=== PATIENT | female | born 1965 | race Caucasian/White ===

== ENCOUNTER 2017-09-08 22:10 | Emergency (ER) | payer MEDICARE, MEDICAID ==
[2015-09-10 08:23] VITALS: BMI 18.7
[~2017-09-08 22:10] MED LIST: CARAFATE1 G/10 ML PO; CELLCEPT250 MG PO; CYCLOBENZAPRINE5 MG PO; DILAUDID2 MG PO; DURAGESIC1 PATCH .1 TRANSDERM; GABAPENTIN100 MG PO; HUMALOG 30100 UNITS/; HYDROCODONE-APA1 TAB PO; LIDOCAINE 2 %100 ML PO; NEORAL25 MG PO; NYSTATIN ORAL SU5 ML PO; VITAMIN B-121000 MCG PO; VITAMIN B-122500 MCG
[2017-09-08 23:13] LABS: BASOPHILS 0.2 % (0-2); EOSINOPHILS 0.2 % (0-7); HEMATOCRIT 41.2 % (36.0-48.0); HEMOGLOBIN 14.4 g/dL (12-16); IMMATURE GRANULOCYTES 0.3 % (0-5); LYMPHOCYTES 18.4 % (15-50); MCH 31.1 pg (26.0-34.0); MEAN PLATELET VOLUME 9.2 fL (7.4-10.4); MONOCYTES 6.5 % (2-11); NEUTROPHILS 74.4 % (40-80); PLATELET COUNT 185 10x3/uL (130-400); RBC 4.63 10x6/uL (4.00-5.40); RDW 13.3 % (11.5-14.5); WBC 6.4 10x3/uL (4.8-10.8)
[2017-09-08 23:29] LABS: ALBUMIN 3.6 g/dL (3.4-5.0); ALKALINE PHOSPHATASE 116 U/L (46-116); ALT (SGPT) 17 U/L (10-68); BILIRUBIN - TOTAL 0.42 mg/dL (0.2-1.3); CALC OSMOLALITY 270 mosm/kg (275-300); CALCIUM 9.3 mg/dL (8.5-10.1); CARBON DIOXIDE 27.5 mmol/L (21.0-32.0); CHLORIDE - SERUM 98 mmol/L (98-107); CREATININE - SERUM 0.6 mg/dL (0.6-1.3); POTASSIUM - SERUM 3.6 mmol/L (3.5-5.1); SODIUM 136 mmol/L (136-145); UREA NITROGEN 13 mg/dL (7-18); eGFR NON AFRICAN AMERICAN > 90 mL/min (90-120)
[2017-09-08 23:33] LABS: GLUCOSE 84 mg/dL (74-106)
[2017-09-08 23:38] LABS: CREATINE KINASE 44 UL (21-215); PRO BNP 625 pg/mL (0-125)
[2017-09-08 23:39] LABS: TROPONIN-I < 0.017 ng/mL (0.000-0.060)
== END 2017-09-09 03:50 | disposition home or self-care (01) ==
LOC: D.ER 22:10
PROVIDERS: Family Medicine
DX: J20.9 Acute bronchitis, unspecified (principal); R09.1 Pleurisy; I31.3 Pericardial effusion (noninflammatory); R00.0 Tachycardia, unspecified; F17.200 Nicotine dependence, unspecified, uncomplicated

== ENCOUNTER 2017-10-11 11:30 | Outpatient (CLI) | payer MEDICARE, MEDICAID ==
[~2017-10-11] VITALS: Ht 154.9 cm; Wt 48.6 kg
--- NOTE | ~2017-10-11 | OP ---
PATIENT NAME: SUSU NICOLE MEDICAL RECORD: [id number] :67 LOCATION:D.CAT ADMISSION DATE: SURGEON: NEW FUENTES MD DATE OF OPERATION: 10/11/2017 PROCEDURE: Left heart catheterization, selective coronary angiography, left femoral artery approach. CATHETERS: A 5-Welsh sheath, 5/4 left Crystal, 5/4 pig. The procedure was well tolerated. She returned to the deleon, sheath removed, adequate hemostasis was obtained. LEFT VENTRICULOGRAPHY: In 30 degrees ALBRIGHT view, global hypokinesis. Overall, LV function 25% to 30%. CORONARY ANATOMY: Left main: Left main is free of disease. LAD: LAD has a diffuse 80% to 90% stenosis in mid portion with good target distally. There is large high ramus/D1 branch with about 80% stenosis before the bifurcation. RIGHT CORONARY ARTERY: Proximal, mid portion, has about 80% stenosis. 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 TRANSINT:[id number] Voice Confirmation ID: [id number] DOCUMENT ID: [id number] NEW FUENTES MD at 1325 CC: [id number] DICTATION DATE: 10/11/17 1439 SUPERVISOR RECORDS CHANGE: 10/11/17 1626 DEP CLI 10/11/[address] [address]
--- NOTE | ~2017-10-11 | HEMODYNAMI ---
PATIENT:SUSU NICOLE MEDICAL RECORD: [id number] : 67 LOCATION:[facility] ADMISSION DATE: 10/11/17 Generatedon:10/11/201714:37 Patient name: SUSU NICOLE Patient #: [id number] SSN: : 1965 Date of study: 10/11/2017 Page: Of Hemodynamic Procedure Report Patient Data Patient Demographics Procedure consent was obtained First Name: SUSU Gender: Female Last Name: BONNIE : 1965 Middle Initial: Age: 52 year(s) Patient #: [id number] Race: Unknown Additional ID: [id number] Contact details Address: [address] [place] [address] [place] State: [place] City: [facility] Zip code: [address] Admission Admission Data Admission Date: 10/11/2017 Admission Time: 11:30 Procedure Procedure Types Cath Procedure Diagnostic Procedure LHC LHC w/Coronaries Procedure Description Procedure Date Procedure Date: 10/11/2017 Procedure Start Time: 14:16 Procedure End Time: 14:36 Procedure Staff Name Function Francis Schulte MD Performing Physician Tushar Nino RT Monitor Leon Manley RN Nurse Coretta Bland RT Scrub Feranndo Adrian Jr, CRNA Additional personnel Procedure Data Cath Procedure Fluoroscopy Diagnostic fluoroscopy Total fluoroscopy Time: 2.5 time: 2.5 min min Diagnostic fluoroscopy Total fluoroscopy dose: 251 dose: 251 mGy mGy Contrast Material Contrast Material Type Amount (ml) Isovue 300 60 Entry Location Entry Primary Successful Side Size Upsize Upsize Entry Closure Succes sful Closure Location (Fr) 1 (Fr) 2 (Fr) Remarks Device Remarks Femoral Left 5 Fr Exoseal artery Estimated blood loss: 10 ml Diagnostic catheters Device Type Used For End Catheter Placement MULTIPACK 3DRC 5Fr Procedure catheter MULTIPACK JL 4.0 5Fr Procedure catheter MULTIPACK Pigtail 5 Fr Procedure catheter Procedure Complications No complications Procedure Medications Medication Administration Route Dosage Oxygen etCO2 Nasal cannula 2 l/min Heparin Flush Bag added to field 2 bags (1000units/500ml NS) 0.9% NaCl I.V. 100 ml/hr Refer to Anesthesia Notes for Sedation Medications Hemodynamics Rest Heart Rate: 80 (bpm) Pressure Samples Time Site Value (mmHg) Purpose Heart Use Rate(bpm) 14:22 AO 71/46(56) Snapshot 69 14:26 LV 86/-1,8 Snapshot 72 Gradients Valve Time Site Site Mean SEP/DFP Peak To Heart Use 1 2 (mmHg) (sec/min) Peak Rate (mmHg) (bpm) Aortic 14:26 LV AO 72 Snapshots Pre Cath Intra NCS Post Cath Vital Signs Time Heart Resp SPO2 etCO2 NIBP Rhythm Pain Sedation Rate (ipm) (%) (mmHg) (mmHg) Status Level (bpm) 13:37:34 80 16 96 0 97/42(58) NSR 0 (11) 10(A) , No pain 13:42:05 78 16 100 32.4 96/56(78) NSR 0 (11) 10(A) , No pain 13:46:35 76 16 100 34.6 88/48(75) NSR 0 (11) 10(A) , No pain 13:51:05 75 17 100 34.6 80/33(69) NSR 0 (11) 10(A) , No pain 13:55:34 74 17 100 33.9 77/37(57) NSR 0 (11) 10(A) , No pain 14:00:02 73 17 100 33.1 73/40(58) NSR 0 (11) 10(A) , No pain 14:04:31 71 16 100 33.1 70/35(59) NSR 0 (11) 10(A) , No pain 14:08:59 71 16 100 33.9 76/37(62) NSR 0 (11) 10(A) , No pain 14:13:27 72 16 100 33.1 80/34(56) NSR 0 (11) 10(A) , No pain 14:17:55 73 17 100 32.3 78/40(64) NSR 0 (11) 10(A) , No pain 14:22:24 73 15 100 32.3 76/37(61) NSR 0 (11) 10(A) , No pain 14:26:52 71 17 100 33.1 81/42(65) NSR 0 (11) 10(A) , No pain 14:31:02 70 11 100 32.4 77/36(64) NSR 0 (11) 10(A) , No pain 14:35:30 71 12 100 31.6 77/42(64) NSR 0 (11) 10(A) , No pain Medications Time Medication Route Dose Verified Delivered Reason Notes Effe ctiveness by by 13:32:07 Oxygen etCO2 2 Francis Quintero Per Nasal l/min St Jak Manley RN physician cannula MD 13:32:16 Heparin Flush added 2 Francis Quintero used for Bag to bags St Jak Manley RN procedure (1000units/500ml field NS) 13:32:25 0.9% NaCl I.V. 100 Francis Leon Per ml/hr St Jak Manley RN physician MD 13:32:31 Refer to Francis Quintero Per Anesthesia Notes St Jak Manley RN physician for Sedation Medications Procedure Log Time Note 13:00:55 Leon Manley RN sent for patient. Start room use. 13:18:56 Time tracking: Regular hours (M-F 7:00 - 5:00) 13:19:00 Plan of Care:Hemodynamics will remain stable., Cardiac rhythm will remain stable., Comfort level will be maintained., Respiratory function will remain adequate., Patient/ family verbilizes understanding of procedure., Procedure tolerated without complication., Recovers from procedure without complications.. 13:23:44 Patient received from Pre/Post Procedure Room to CCL 1 Alert and oriented. Tansferred to table in Supine position. 13:23:44 Warm blankets applied, and delonte hugger turned on for patient comfort. 13:23:45 Correct patient and procedure confirmed by team. 13:23:46 Signed procedure consent form obtained from patient. 13:23:47 ECG and BP/O2 sat monitors applied to patient. 13:23:48 Full Disclosure recording started 13:29:28 Fernando Adrian Jr, CRNA present and monitoring patient for TIVA. 13:29:30 Vital chart was started 13:32:07 Oxygen 2 l/min etCO2 Nasal cannula was administered by Leon Manley RN; Per physician; 13:32:16 Heparin Flush Bag (1000units/500ml NS) 2 bags added to field was administered by Leon Manley RN; used for procedure; 13:32:25 0.9% NaCl 100 ml/hr I.V. was administered by Leon Manley RN; Per physician; 13:32:31 Refer to Anesthesia Notes for Sedation Medications was administered by Leon Manley RN; Per physician; 13:32:53 Vital chart was stopped 13:32:55 Vital chart was started 13:36:46 Baseline sample Acquired. 13:36:51 Rhythm: sinus rhythm 13:41:04 H&P Date Dictated: 09/09/2017 Within 30 days and on chart., H&P Addendum completed by physician on day of procedure. (MUST COMPLETE FOR ALL OUTPATIENTS). 13:41:04 Pre-procedure instructions explained to patient. 13:41:05 Pre-op teaching completed and patient verbalized understanding. 13:41:12 Family in waiting room. 13:41:13 Patient NPO since Midnight. 13:41:14 Is the patient allergic to Iodine/contrast media? No. 13:41:16 Is patient on blood thinner?No 13:41:18 Patient diabetic? Yes. 13:41:19 IDDM 13:47:52 Previous problem with sedation/anesthesia? No ? 13:47:56 Snore? Yes 13:47:58 Sleep apnea? No 13:47:59 Deviated septum? No 13:48:00 Opens mouth fully? Yes 13:48:01 Sticks out tongue? Yes 13:48:11 Airway obstruction? Yes Lung CA 13:48:21 Dentures? Yes IN 13:48:25 Pre procedure: left dorsailis pedis pulse 1+ Palpable, but thready & weak; easily obliterated 13:49:16 Unable to go right groin due to past surgical procedures to right lower abdomen. 13:49:20 Patient pain scale 0/10 ?. 13:49:27 IV patent on arrival in left forearm with 0.9% NaCl at [facility]. 13:49:30 Lab results completed and on chart. 13:49:32 Alarms reviewed by R. N. 13:49:32 Sharps counted by scrub and verified by R.N. 13:55:50 Case delayed due to physician working in 3. 14:11:27 --------ALL STOP TIME OUT------ 14:11:28 Final Timeout: patient, procedure, and site verified with staff and physician. All members of the team are in agreement. 14:11:31 Left groin site verified by team. 14:11:36 Physical assessment completed. ASA score P 4 - A patient with severe systemic disease that is a constant threat to life as per Francis Schulte MD. 14:11:46 Sedation plan: TIVA Medication:Propofol 14:14:45 Use device set Femoral Dx 14:14:47 Tegaderm 4 x 4 (1626W) opened to sterile field. 14:14:47 ACIST Manifold (08820) opened to sterile field. 14:14:48 ACIST Hand Control (76373) opened to sterile field. 14:14:50 ACIST Syringe (63275) opened to sterile field. 14:14:50 Bag Decanter (2002S) opened to sterile field. 14:14:51 Medline Cath Pack ([id number]) opened to sterile field. 14:14:54 PERCUTANEOUS ENTRY 19GA needle opened to sterile field. 14:15:12 SHEATH Prelude 5Fr 0.035 (ZSP-9V-14-035) opened to sterile field. 14:15:22 DIAGNOSTIC Multipack 5Fr catheter set (OF9686) opened to sterile field. 14:15:25 DIAGNOSTIC WIRE .035 260cm J wire (792693) opened to sterile field. 14:16:23 Procedure started. 14:16:27 Local anesthetic to left femerol artery with Lidocaine 2% by Francis Schulte MD.INITIAL ACCESS ONLY 14:17:34 A 5 Fr sheath was inserted into the Left Femoral artery 14:18:40 GLIDE WIRE ANGLE 260cm (VK3182) opened to sterile field. 14:18:41 TORQUE DEVICE PLASTIC .038 ( TD01) opened to sterile field. 14:19:23 Unable to advance j wire. Wire removed. Glidewire advanced. 14:20:21 A MULTIPACK 3DRC 5Fr catheter was advanced over the wire and used for Procedure. 14:21:14 RCA angiography performed. 14:21:45 Catheter removed. 14:21:50 A MULTIPACK JL 4.0 5Fr catheter was advanced over the wire and used for Procedure. 14:22:38 LCA angiography performed. 14:24:19 Catheter removed. 14:24:36 A MULTIPACK Pigtail 5 Fr catheter was advanced over the wire and used for Procedure. 14:26:25 LV angiography performed. 14:26:34 LV gram done using ALBRIGHT 14::44 EF : 30 % 14::46 LV hemodynamics recorded. 14::50 Injector settings: Ml/sec: 10, Volume: 20, 14:: EXOSEAL 5Fr (EX500) opened to sterile field. 14:27:30 Catheter removed. 14:28:48 Sheath removed intact; hemostasis achieved with Exoseal to the Left Femoral artery. 14:28:50 Procedure ended.(Physican Out) 14:: Fluoroscopy time 02.50 minutes. 14:: Fluoroscopy dose: 251 mGy 14:: Flurop Dose total: 251 14:: Contrast amount:Isovue 300 60ml. 14:: Sharps counted by scrub and verified by R.N. 14:29:28 Insertion/operative site no bleeding no hematoma. 14:29:34 Post-op/insertion site Left Femoral artery dressed using a 4 x 4 and Tegaderm. 14:29:35 Post Procedure Pulses reassessed and unchanged 14:29:37 Post-procedure physical assessment completed. ASA score P 4 - A patient with severe systemic disease that is a constant threat to life as per Francis Schulte MD. 14:29:40 Post procedure rhythm: unchanged. 14:30:08 Estimated blood loss: 10 ml 14:30:11 Post procedure instruction explained to patient.Patient verbalizes understanding. 14:30:11 Patient needs reinforcement of post procedure teaching. 14:30:52 Procedure and supply charges have been captured, reviewed, submitted and are correct. 14:30:55 Procedure Complication : No complications 14:31:18 See physician's report for complete and final results. 14:31:23 Report given to Pre/Post Procedure Room. 14:31:27 Patient transfered to Pre/Post Procedure Room with Stretcher. 14:36:44 Procedure ended. 14:36:44 Full Disclosure recording stopped 14:36:48 End room use (Document Last) 14:37:03 Vital chart was stopped Device Usage Item Name Manufacture Quantity Catalog Number Hospital Part Current M inimal Lot# / Charge Number Stock Stock Serial# Code Tegaderm 4 x 4 3M 1 1626W [id number] 882848 078880 5 (1626W) ACIST Manifold Acist 1 16988 126908 840562 044409 5 (49191) [employer] Inc ACIST Hand Acist 1 58655 649355 356775 425774 5 Control (68495) [employer] ACIST Syringe Acist 1 75289 633852 961944 006072 2 0 (15473) [employer] Systems Inc Bag Decanter Microtek 1 2001S 867709 36761 859147 5 (2001S) Medical Inc. Medline Cath Cardinal 1 [id number] 476395 19954 202503 5 Pack Health ([id number]) PERCUTANEOUS Cook Medical 1 C44826 410643 771467 5 ENTRY 19GA needle SHEATH Prelude Merit 1 PXU-2W-41-035 173494 092221 342376 5 5Fr 0.035 Medical (RPB-6S-47-035) DIAGNOSTIC Cardinal 1 XJ5563 750255 70347 701665 3 0 Multipack 5Fr Health catheter set (VL0415) DIAGNOSTIC WIRE [facility] [place] 1 189629 913640 694874 538532 3 0 .035 260cm J wire (306545) GLIDE WIRE Terumo 1 RA7284 887136 763636 465059 5 ANGLE 260cm (ND1347) TORQUE DEVICE Marshall 1 TD01 363691 628735 244392 5 PLASTIC .038 ( Scientific TD01) MULTIPACK 3DRC Cardinal 1 350300 5 5Fr catheter Health MULTIPACK JL Cardinal 1 949701 5 4.0 5Fr Health catheter MULTIPACK Cardinal 1 958272 5 Pigtail 5 Fr Health catheter EXOSEAL 5Fr Cardinal 1 EX500 425874 423169 899960 1 0 (EX500) Health Signature Audit [place] Stage Time Signature Unsigned Intra-Procedure 10/11/2017 Tushar Nino 2:37:01 PM RT(R) Signatures Monitor : Tushar Nino RT Signature : Date : Time : [facility] [address] [place] [address]
[2017-10-11] MEDS ORDERED: XANAX0.5 MG PO (12:23)
[2017-10-11 12:34] VITALS: BP 138/85; Ht 154.9 cm; Wt 48.6 kg
[2017-10-11 12:35] LABS: BASOPHILS 0.2 % (0-2); EOSINOPHILS 0.9 % (0-7); HEMOGLOBIN 14.6 g/dL (12-16); LYMPHOCYTES 29.2 % (15-50); MCH 30.9 pg (26.0-34.0); MCV 90.9 fL (80.0-100.0); MEAN PLATELET VOLUME 9.1 fL (7.4-10.4); MONOCYTES 7.2 % (2-11); NEUTROPHILS 62.5 % (40-80); PLATELET COUNT 192 10x3/uL (130-400); RBC 4.73 10x6/uL (4.00-5.40); WBC 4.5 10x3/uL (4.8-10.8)
[2017-10-11 12:52] LABS: CALC OSMOLALITY 281 mosm/kg (275-300); CALCIUM 9.2 mg/dL (8.5-10.1); CARBON DIOXIDE 29.8 mmol/L (21.0-32.0); CHLORIDE - SERUM 102 mmol/L (98-107); CREATININE - SERUM 0.6 mg/dL (0.6-1.3); GLUCOSE 127 mg/dL (74-106); POTASSIUM - SERUM 3.5 mmol/L (3.5-5.1); SODIUM 140 mmol/L (136-145); UREA NITROGEN 16 mg/dL (7-18); eGFR NON AFRICAN AMERICAN > 90 mL/min (90-120)
== END 2017-10-11 16:55 | disposition home or self-care (01) ==
LOC: D.CATH 11:30
PROVIDERS: Internal Medicine Interventional Cardiology
DX: I25.119 Atherosclerotic heart disease of native coronary artery with unspecified angina pectoris (principal); R94.30 Abnormal result of cardiovascular function study, unspecified; F17.200 Nicotine dependence, unspecified, uncomplicated; E11.9 Type 2 diabetes mellitus without complications; Z94.0 Kidney transplant status; Z01.812 Encounter for preprocedural laboratory examination

== ENCOUNTER 2017-11-02 14:00 | Inpatient (IN) | payer MEDICARE, MEDICAID ==
[~2017-11-02] VITALS: Ht 154.9 cm; Wt 60.6 kg
--- NOTE | ~2017-11-02 | OP ---
PATIENT NAME: SUSU NICOLE MEDICAL RECORD: [id number] :67 LOCATION:[facility] ADMISSION DATE:11/04/17 SURGEON: ESTEBAN ANN MD DATE OF OPERATION: 11/04/2017 SURGEON: Esteban Ann MD ASSISTANTS: 1. Sonu Palmer MD 2. COLLIN Feliz OPERATION PERFORMED: Coronary bypass graft times 4 (left internal mammary artery to first diagonal and reverse saphenous vein grafts from aorta to LAD, aorta to obtuse marginal, and aorta to posterior descending artery). PREOPERATIVE DIAGNOSES: Coronary disease, end-stage renal disease with kidney transplant, and history of lung cancer. POSTOPERATIVE DIAGNOSES: Coronary disease, end-stage renal disease with kidney transplant, and history of lung cancer. ANESTHESIA: General endotracheal anesthesia. ESTIMATED BLOOD LOSS: Total cardiopulmonary bypass with Cell Saver retransfusion, 2 units of packed red blood cells, transfused 1 unit of platelets. COMPLICATIONS: None. SPECIMENS: None. CONDITION: Stable. DISPOSITION: CV ICU. OPERATIVE FINDINGS: 1. Good quality greater saphenous vein from the mid calf upward. The lower leg portion was smaller and thin walled and was only used as the proximal portion of the graft to the obtuse marginal. There was concern for using the left internal mammary artery for major graft due to the history of bilateral supraclavicular radiation. On taking down the internal mammary artery, the tissues in the region of the subclavian vein had significant changes consistent with radiation change. Therefore, the pedicle graft was used as a graft to the diagonal vessel due to concern from previous radiation damage, but without other vein available for use for this graft. 2. LAD 2.0 mm with severe disease. 3. First diagonal 1.5 mm with severe disease. 4. Obtuse marginal intramyocardial 2.0 mm vessel with severe proximal disease. 5. The right coronary artery was calcified throughout down past the bifurcation. The posterolateral branch was slightly smaller than the posterior descending artery, unlike what it had appeared on the arteriogram. The graft was therefore placed on the posterior descending artery. 6. Transesophageal echocardiography revealed trace mitral regurgitation. Significantly improved contractility from the time of the cath to about 45% EF with significant left ventricular hypertrophy and moderately dilated diastolic OPERATIVE REPORT [id number] SUSU NICOLE dimensions of the left ventricle. OPERATIVE INDICATION: Unstable angina and multivessel coronary disease with diminished left ventricular function. OPERATIVE SUMMARY IN DETAIL: The patient was brought to the operating suite. General anesthesia was obtained. The patient was prepped and draped. During placement of the lines, initially attempts were made to place right IJ. Eventually, a right subclavian line was able to be placed as a left subclavian was cannulated but the catheter would not cross the midline. The exposure of the chest did reveal some scarring in the midline, consistent with previous radiation. Greater saphenous vein was harvested in the leg using open incisions. Vessel removed. Side branches clipped or tied and made hemostatic with Prolene. Leg was later closed with subcutaneous and skin clips. Sternotomy incision was made. Subcutaneous tissue was divided with electrocautery. Left hemisternum was elevated. Left pleural cavity was entered. Left internal mammary vein was taken as a pedicle graft. Sternal retractor was placed. Pericardium was opened. The heparin was given. The patient was cannulated. Internal mammary was clipped distally. The patient was placed on cardiopulmonary bypass. Sites for distal anastomoses were selected. Antegrade cardioplegic cannula was inserted. The patient was cooled. Crossclamp was placed. Cardioplegia was given. This was repeated at 15-minute intervals including down the completed vein grafts. Distal anastomosis was performed in standard technique and proximal anastomosis in single crossclamp technique. The aortic root was deaired and flow was restored. After de-airing the grafts, proximal and distal anastomotic site was inspected for bleeding. The patient resumed spontaneous rhythm after a single defibrillation. After fully rewarmed, weaned cardiopulmonary bypass and was stable. The patient was decannulated. Cannulation site on the aorta was oversewn with a pledgeted Prolene. Thorough irrigation was undertaken. The patient was stable. The grafts lay appropriately. Drains were placed in mediastinum and left pleural cavity. Left chest was evacuated and irrigated. Ventricular pacing wires were placed. Pericardial fat was loosely reapproximated. The sternum was closed with a Robicsek weave sternal wire on both sides due to her previous radiation and history of smoking. Fascia was closed. Subcutaneous tissue was closed. Skin was closed. Dermabond was placed. Needle and sponge counts were reported as correct. The patient was taken to the ICU in stable condition. TRANSINT:[id number] Voice Confirmation ID: [id number] DOCUMENT ID: [id number] ESTEBAN ANN MD at 1328 CC: ISABELL MELGAR MD and NEW FUENTES MD [id number] DICTATION DATE: 11/04/17 1431 HOSPICE CLINICAL MANAGER: 11/04/17 1634 DIS IN 11/10/17 [facility] [address] [place] [id number]
--- NOTE | ~2017-11-02 | EC ---
PATIENT:SUSU NICOLE DATE OF SERVICE: 11/04/17 SEX: F MEDICAL RECORD: [id number] DATE OF : 67 LOCATION:[facility] AGE OF PATIENT: 52 ADMISSION DATE: 11/04/17 REFERRING PHYSICIAN: INTERPRETING PHYSICIAN: YESICA FLOYD MD ECHOCARDIOGRAM REPORT ECHO CHARGES Date: 11/04 CLINICAL DIAGNOSIS: ECHOCARDIOGRAPHIC MEASUREMENTS (adult normal given) AC root (d.<3.7cm) cm LV Septum d (<1.2 cm> cm Valve Excursion cm LV Septum (systole) cm Left Atria (s.<4.0cm> cm LVPW d(<1.2cm) cm RV (d.<2.3cm) cm LVPW (sytole) cm LV diastole(<5.6CM) cm MV E-F(>70mm/sec) cm LV systole cm LVOT Diameter cm MV exc.(>10mm) cm Est.ejection fraction (50-75%) % DOPPLER: LVIT cm/sec A cm/sec E cm/sec LA cm/sec RVSP mmHg LVOT cm/sec AOP1/2T m/s Asc. Ao cm/sec RVOT cm/sec RA cm/sec PA cm/sec AV Gradient Peak mmHg AV Mean mmHg AV Area cm MV Gradient Peak mmHg MV Mean mmHg MV Area cm COMMENTS: Dredge Worker: Sridevi TORRE Transport Medic: 3 Dr. Bhatti TAPE# PACS Pericardial Effusion DATE OF SERVICE: 11/04/2017 PROCEDURE: Transesophageal echo evaluation of valvular structures during bypass surgery. FINDINGS: 1. Left ventricular chamber size is mildly dilated. Left ventricular systolic function is moderately reduced, overall ejection fraction 30% to 35%. 2. Left atrium, right atrium, and right ventricle chamber sizes are as well mildly dilated. ECHOCARDIOGRAM REPORT [id number] SUSU NICOLE 3. Valvular structures have normal structure and motion. 4. Doppler interrogation only reveals trace mitral regurgitation, no other valvular insufficiency or stenosis. 5. No evidence of pericardial effusion or left ventricular thrombus. TRANSINT:[id number] Voice Confirmation ID: [id number] DOCUMENT ID: [id number] YESICA FLOYD MD at 1848 CC: [id number] DICTATION DATE: 11/05/17 1006 SHEET METAL ASSEMBLER AND RIVETER: 11/05/17 1416 ADM IN [facility] [address] [place] [id number]
[~2017-11-02 14:00] MED LIST changes: +XANAX0.5 MG PO
[2017-11-02 15:52] LABS: BASOPHILS 0.4 % (0-2); EOSINOPHILS 0.4 % (0-7); HEMATOCRIT 43.2 % (36.0-48.0); IMMATURE GRANULOCYTES 0.2 % (0-5); LYMPHOCYTES 28.3 % (15-50); MCH 31.3 pg (26.0-34.0); MCHC 34.7 g/dL (31.0-37.0); MCV 90.2 fL (80.0-100.0); MEAN PLATELET VOLUME 10.1 fL (7.4-10.4); NEUTROPHILS 65.7 % (40-80); PLATELET COUNT 177 10x3/uL (130-400); RBC 4.79 10x6/uL (4.00-5.40); RDW 13.9 % (11.5-14.5)
[2017-11-02 16:07] LABS: APPEARANCE CLEAR (CLEAR); BILIRUBIN NEGATIVE (NEGATIVE); COLOR YELLOW (YELLOW); GLUCOSE NEGATIVE (NEGATIVE); KETONE SMALL mg/dL (NEGATIVE); NITRITE NEGATIVE (NEGATIVE); PROTEIN NEGATIVE (NEGATIVE); UROBILINOGEN NORMAL (NORMAL)
[2017-11-02 16:21] LABS: APTT 34.6 SECONDS (22.8-39.4); PROTIME 12.8 SECONDS (11.6-15.0)
[2017-11-02 16:22] LABS: ALBUMIN 3.5 g/dL (3.4-5.0); ALKALINE PHOSPHATASE 94 U/L (46-116); ALT (SGPT) 20 U/L (10-68); BILIRUBIN - TOTAL 0.64 mg/dL (0.2-1.3); CALC OSMOLALITY 279 mosm/kg (275-300); CALCIUM 9.5 mg/dL (8.5-10.1); CARBON DIOXIDE 24.9 mmol/L (21.0-32.0); CHLORIDE - SERUM 101 mmol/L (98-107); CHOLESTEROL, TOTAL 200 mg/dL (0-200); CREATININE - SERUM 0.5 mg/dL (0.6-1.3); PHOSPHOROUS 3.8 mg/dL (2.5-4.9); POTASSIUM - SERUM 3.9 mmol/L (3.5-5.1); PROTEIN - SERUM 7.6 g/dL (6.4-8.2); SODIUM 136 mmol/L (136-145); T4 THYROXIN - FREE 1.21 ng/dL (0.76-1.46); THYROID STIMULATING HORMONE 6.02 uIU/mL (0.36-3.74); UREA NITROGEN 14 mg/dL (7-18); URIC ACID 3.1 mg/dL (2.6-7.2); eGFR NON AFRICAN AMERICAN > 90 mL/min (90-120)
[2017-11-02 16:26] LABS: GLUCOSE 227 mg/dL (74-106)
[2017-11-04] VITALS (30 sets, daily range): BP systolic 102–163; BP diastolic 62–88; BMI 19.8; BMI 21.2
[2017-11-04] MEDS ORDERED: FLAXSEED OIL1000 MG PO (05:54)
[2017-11-04] MEDS ORDERED: VITAMIN D3400 UNI1 PO (05:55)
[2017-11-04 06:11] LABS: HCG URINE NEGATIVE (NEGATIVE)
[2017-11-04 09:31] LABS: PLT FUNCT.(P2Y12) PLAVIX 247 PRU (194-418)
[2017-11-04 13:59] LABS: HEMATOCRIT 36.2 % (36.0-48.0); HEMOGLOBIN 12.5 g/dL (12-16); MCH 30.9 pg (26.0-34.0); MCHC 34.5 g/dL (31.0-37.0); MCV 89.4 fL (80.0-100.0); MEAN PLATELET VOLUME 9.6 fL (7.4-10.4); RBC 4.05 10x6/uL (4.00-5.40); RDW 13.9 % (11.5-14.5)
[2017-11-04 14:03] LABS: WBC 7.2 10x3/uL (4.8-10.8)
[2017-11-04 14:12] LABS: APTT 36.8 SECONDS (22.8-39.4)
[2017-11-04 14:13] LABS: INR 1.36 (0.85-1.17); PROTIME 16.3 SECONDS (11.6-15.0)
[2017-11-04 14:30] LABS: CALCIUM 7.7 mg/dL (8.5-10.1); CARBON DIOXIDE 24.4 mmol/L (21.0-32.0); CHLORIDE - SERUM 112 mmol/L (98-107); CREATININE - SERUM 0.4 mg/dL (0.6-1.3); SODIUM 147 mmol/L (136-145); UREA NITROGEN 17 mg/dL (7-18); eGFR NON AFRICAN AMERICAN > 90 mL/min (90-120)
[2017-11-04 14:31] LABS: CALC OSMOLALITY 292 mosm/kg (275-300); GLUCOSE 88 mg/dL (74-106); POTASSIUM - SERUM 3.1 mmol/L (3.5-5.1)
[2017-11-04] MEDS ORDERED: PROAIR HFA8.5 GM INH (15:45)
[2017-11-05] VITALS (25 sets, daily range): BP systolic 81–161; BP diastolic 46–84; Ht 154.9 cm; Wt 60.6 kg
[2017-11-05 05:12] LABS: HEMATOCRIT 34.9 % (36.0-48.0); HEMOGLOBIN 11.9 g/dL (12-16); MCH 31.1 pg (26.0-34.0); MCHC 34.1 g/dL (31.0-37.0); MCV 91.1 fL (80.0-100.0); MEAN PLATELET VOLUME 9.8 fL (7.4-10.4); RBC 3.83 10x6/uL (4.00-5.40); RDW 14.2 % (11.5-14.5); WBC 7.8 10x3/uL (4.8-10.8)
[2017-11-05 05:20] LABS: ALBUMIN 2.6 g/dL (3.4-5.0); ALKALINE PHOSPHATASE 65 U/L (46-116); ALT (SGPT) 97 U/L (10-68); CALC OSMOLALITY 287 mosm/kg (275-300); CALCIUM 7.6 mg/dL (8.5-10.1); CARBON DIOXIDE 25.2 mmol/L (21.0-32.0); CHLORIDE - SERUM 107 mmol/L (98-107); CREATININE - SERUM 0.4 mg/dL (0.6-1.3); GLUCOSE 157 mg/dL (74-106); POTASSIUM - SERUM 3.8 mmol/L (3.5-5.1); PROTEIN - SERUM 5.1 g/dL (6.4-8.2); SODIUM 142 mmol/L (136-145); UREA NITROGEN 18 mg/dL (7-18); eGFR NON AFRICAN AMERICAN > 90 mL/min (90-120)
[2017-11-06] VITALS (24 sets, daily range): BP systolic 90–144; BP diastolic 49–83
[2017-11-06 06:48] LABS: ALBUMIN 2.3 g/dL (3.4-5.0); ALKALINE PHOSPHATASE 61 U/L (46-116); ALT (SGPT) 54 U/L (10-68); BILIRUBIN - TOTAL 0.57 mg/dL (0.2-1.3); CALC OSMOLALITY 272 mosm/kg (275-300); CALCIUM 8.7 mg/dL (8.5-10.1); CARBON DIOXIDE 26.7 mmol/L (21.0-32.0); CHLORIDE - SERUM 102 mmol/L (98-107); CREATININE - SERUM 0.5 mg/dL (0.6-1.3); GLUCOSE 145 mg/dL (74-106); POTASSIUM - SERUM 4.1 mmol/L (3.5-5.1); PROTEIN - SERUM 5.3 g/dL (6.4-8.2); SODIUM 134 mmol/L (136-145); UREA NITROGEN 18 mg/dL (7-18); eGFR NON AFRICAN AMERICAN > 90 mL/min (90-120)
[2017-11-06 06:50] LABS: HEMATOCRIT 31.8 % (36.0-48.0); HEMOGLOBIN 10.8 g/dL (12-16); MCV 91.4 fL (80.0-100.0); RBC 3.48 10x6/uL (4.00-5.40); RDW 14.7 % (11.5-14.5); WBC 7.1 10x3/uL (4.8-10.8)
[2017-11-07] VITALS (25 sets, daily range): BP systolic 100–136; BP diastolic 52–76
[2017-11-07 06:46] LABS: MCH 30.9 pg (26.0-34.0); MCHC 33.3 g/dL (31.0-37.0); MCV 92.6 fL (80.0-100.0); MEAN PLATELET VOLUME 9.7 fL (7.4-10.4); RBC 3.24 10x6/uL (4.00-5.40); RDW 14.5 % (11.5-14.5); WBC 6.4 10x3/uL (4.8-10.8)
[2017-11-07 07:11] LABS: ALKALINE PHOSPHATASE 72 U/L (46-116); CALC OSMOLALITY 273 mosm/kg (275-300); CALCIUM 8.2 mg/dL (8.5-10.1); CARBON DIOXIDE 25.2 mmol/L (21.0-32.0); CHLORIDE - SERUM 102 mmol/L (98-107); CREATININE - SERUM 0.5 mg/dL (0.6-1.3); GLUCOSE 161 mg/dL (74-106); POTASSIUM - SERUM 4.2 mmol/L (3.5-5.1); PROTEIN - SERUM 5.1 g/dL (6.4-8.2); SODIUM 135 mmol/L (136-145); UREA NITROGEN 14 mg/dL (7-18); eGFR NON AFRICAN AMERICAN > 90 mL/min (90-120)
[2017-11-07 07:12] LABS: ALT (SGPT) 36 U/L (10-68)
[2017-11-08] VITALS (25 sets, daily range): BP systolic 107–151; BP diastolic 62–82
[2017-11-08 06:24] LABS: HEMATOCRIT 30.3 % (36.0-48.0); HEMOGLOBIN 10.2 g/dL (12-16); MCH 30.9 pg (26.0-34.0); MCHC 33.7 g/dL (31.0-37.0); MCV 91.8 fL (80.0-100.0); MEAN PLATELET VOLUME 9.7 fL (7.4-10.4); RBC 3.3 10x6/uL (4.00-5.40); RDW 14.3 % (11.5-14.5)
[2017-11-08 06:28] LABS: WBC 4.6 10x3/uL (4.8-10.8)
[2017-11-08 06:45] LABS: ALKALINE PHOSPHATASE 61 U/L (46-116); ALT (SGPT) 31 U/L (10-68); BILIRUBIN - TOTAL 0.49 mg/dL (0.2-1.3); CALC OSMOLALITY 278 mosm/kg (275-300); CALCIUM 8.3 mg/dL (8.5-10.1); CARBON DIOXIDE 27.6 mmol/L (21.0-32.0); CHLORIDE - SERUM 102 mmol/L (98-107); CREATININE - SERUM 0.4 mg/dL (0.6-1.3); GLUCOSE 120 mg/dL (74-106); POTASSIUM - SERUM 3.7 mmol/L (3.5-5.1); PROTEIN - SERUM 5.2 g/dL (6.4-8.2); SODIUM 139 mmol/L (136-145); UREA NITROGEN 12 mg/dL (7-18); eGFR NON AFRICAN AMERICAN > 90 mL/min (90-120)
[2017-11-09] VITALS (24 sets, daily range): BP systolic 124–163; BP diastolic 60–88
[2017-11-09 05:55] LABS: HEMATOCRIT 31.1 % (36.0-48.0); HEMOGLOBIN 10.5 g/dL (12-16); MCH 30.9 pg (26.0-34.0); MCHC 33.8 g/dL (31.0-37.0); MCV 91.5 fL (80.0-100.0); MEAN PLATELET VOLUME 9.3 fL (7.4-10.4); RBC 3.4 10x6/uL (4.00-5.40); WBC 4.2 10x3/uL (4.8-10.8)
[2017-11-09 06:27] LABS: ALBUMIN 2.1 g/dL (3.4-5.0); ALKALINE PHOSPHATASE 70 U/L (46-116); CALC OSMOLALITY 278 mosm/kg (275-300); CALCIUM 8.8 mg/dL (8.5-10.1); CARBON DIOXIDE 29.4 mmol/L (21.0-32.0); CHLORIDE - SERUM 103 mmol/L (98-107); CREATININE - SERUM 0.4 mg/dL (0.6-1.3); GLUCOSE 133 mg/dL (74-106); POTASSIUM - SERUM 3.4 mmol/L (3.5-5.1); PROTEIN - SERUM 5.6 g/dL (6.4-8.2); SODIUM 139 mmol/L (136-145); UREA NITROGEN 10 mg/dL (7-18); eGFR NON AFRICAN AMERICAN > 90 mL/min (90-120)
[2017-11-09 06:29] LABS: ALT (SGPT) 23 U/L (10-68)
[2017-11-10] VITALS (10 sets, daily range): BP systolic 125–146; BP diastolic 60–84
[2017-11-10 06:16] LABS: ALKALINE PHOSPHATASE 62 U/L (46-116); ALT (SGPT) 21 U/L (10-68); BILIRUBIN - TOTAL 0.44 mg/dL (0.2-1.3); CALCIUM 8.4 mg/dL (8.5-10.1); CARBON DIOXIDE 27.3 mmol/L (21.0-32.0); CHLORIDE - SERUM 99 mmol/L (98-107); CREATININE - SERUM 0.4 mg/dL (0.6-1.3); PROTEIN - SERUM 5.4 g/dL (6.4-8.2); SODIUM 137 mmol/L (136-145); UREA NITROGEN 10 mg/dL (7-18); eGFR NON AFRICAN AMERICAN > 90 mL/min (90-120)
[2017-11-10 06:26] LABS: CALC OSMOLALITY 280 mosm/kg (275-300); GLUCOSE 236 mg/dL (74-106)
[2017-11-10] MEDS ORDERED: ASPIRIN81 MG PO (09:25)
[2017-11-10] MEDS ORDERED: LOPRESSOR25 MG PO (09:28)
[2017-11-10] MEDS ORDERED: HYDROCODON-ACE1 EAC7 PO (09:29)
== END 2017-11-10 10:53 | disposition home or self-care (01) | DRG 236 ==
LOC: D.SDCHOLD 15:00 → D.CVICU 11-04 05:01 → D.SDCHOLD 11-04 05:01 → D.CVICU 11-04 11:57 → D.SDCHOLD 11-04 15:00 → D.CVICU 11-10 10:53
PROVIDERS: Thoracic Surgery (Cardiothoracic Vascular Surgery)
PROC: 021209W Bypass Coronary Artery, Three Arteries from Aorta with Autologous Venous Tissue, Open Approach (ICD-10-PCS; 2017-11-04)
PROC: 06BP0ZZ Excision of Right Saphenous Vein, Open Approach (ICD-10-PCS; 2017-11-04)
PROC: 5A1221Z Performance of Cardiac Output, Continuous (ICD-10-PCS; 2017-11-04)
PROC: 02100Z9 Bypass Coronary Artery, One Artery from Left Internal Mammary, Open Approach (ICD-10-PCS; principal; 2017-11-04 07:30)
DX: I25.10 Atherosclerotic heart disease of native coronary artery without angina pectoris (principal); Z94.0 Kidney transplant status; J44.9 Chronic obstructive pulmonary disease, unspecified; E11.9 Type 2 diabetes mellitus without complications; I10 Essential (primary) hypertension; Z85.118 Personal history of other malignant neoplasm of bronchus and lung; R00.0 Tachycardia, unspecified

== ENCOUNTER → 2017-11-24 08:29 | Outpatient (CLI) | payer MEDICARE, MEDICAID ==
[2017-11-05 14:43] VITALS: BMI 24.2
[~2017-11-24 08:29] MED LIST changes: +ASPIRIN81 MG PO; +FLAXSEED OIL1000 MG PO; +HYDROCODON-ACE1 EAC7 PO; +LOPRESSOR25 MG PO; +PROAIR HFA8.5 GM INH; +VITAMIN D3400 UNI1 PO
[2017-11-24 09:27] LABS: HEMATOCRIT 36.5 % (36.0-48.0); HEMOGLOBIN 12.6 g/dL (12-16)
== END | disposition home or self-care (01) ==
LOC: D.RAD 08:15
PROVIDERS: Thoracic Surgery (Cardiothoracic Vascular Surgery)
DX: J91.8 Pleural effusion in other conditions classified elsewhere (principal); D64.9 Anemia, unspecified

== ENCOUNTER → 2019-07-18 08:24 | Outpatient (CLI) | payer MEDICARE, MEDICAID ==
[2017-11-05 14:43] VITALS: BMI 24.2
--- NOTE | 2019-07-20 14:13 | EC ---
PATIENT:SUSU NICOLE DATE OF SERVICE: 07/18/19 SEX: F MEDICAL RECORD: [id number] DATE OF : 67 [facility] AGE OF PATIENT: 54 ADMISSION DATE: 07/18/19 REFERRING PHYSICIAN: INTERPRETING PHYSICIAN: NEW FUENTES MD ECHOCARDIOGRAM REPORT ECHO CHARGES 4 ECHO COMPLETE Date: 07/18/19 CLINICAL DIAGNOSIS: CARDIOMYOPATHY H/O CAD/CABG/HTN ECHOCARDIOGRAPHIC MEASUREMENTS (adult normal given) AC root (d.<3.7cm) 3.3 cm LV Septum d (<1.2 cm> 1.0 cm Valve Excursion 1.6 cm LV Septum (systole) 1.4 cm Left Atria (s.<4.0cm> 2.5 cm LVPW d(<1.2cm) 1.0 cm RV (d.<2.3cm) 1.8 cm LVPW (sytole) 1.4 cm LV diastole(<5.6CM) 3.5 cm MV E-F(>70mm/sec) cm LV systole 2.5 cm LVOT Diameter 1.8 cm MV exc.(>10mm) cm Est.ejection fraction (50-75%) % DOPPLER: LVIT cm/sec A 115 cm/sec E 76.0 cm/sec LA cm/sec RVSP 18.3 mmHg LVOT 78.0 cm/sec AOP1/2T m/s Asc. Ao 170 cm/sec RVOT 52.0 cm/sec RA cm/sec PA 76.0 cm/sec AV Gradient Peak 12.0 mmHg AV Mean 4.8 mmHg AV Area 1.2 cm MV Gradient Peak 6.2 mmHg MV Mean 2.6 mmHg MV Area cm COMMENTS: OP - HC Pier Hand Helper: 1 FARRAH RAMÓN [employer] Mechanic: 3 Dr. Bhatti TAPE# PACS Pericardial Effusion N DATE OF SERVICE: 07/18/2019 Adequate 2D echo, color flow, spectral Doppler, and M-mode. No LVH. LV internal dimensions are normal. LV is mildly globally hypokinetic. EF lower limits of normal, mildly reduced at 45% to 50%. Aortic valve is tricuspid. No evidence of stenosis on Doppler interrogation. The left atrium is normal 3.5 cm. Mitral valve shows no prolapse. Trace MR. Right-sided chambers are grossly normal. Trace TR. ECHOCARDIOGRAM REPORT [id number] SUSU NICOLE TRANSINT:[id number] Voice Confirmation ID: [id number] DOCUMENT ID: [id number] NEW FUENTES MD at 1413 CC: [id number] DICTATION DATE: 07/18/19 1454 CITY ADMINISTRATOR: 07/18/192117 DEP CLI 07/18/19 [place] [id number] [place] [id number]
== END | disposition home or self-care (01) ==
LOC: D.HCCECHO 08:24
PROVIDERS: ATTEND Internal Medicine Interventional Cardiology
DX: I25.10 Atherosclerotic heart disease of native coronary artery without angina pectoris (principal)